=== PATIENT | female | born 1970 | race Caucasian/White ===

== ENCOUNTER → 2017-01-30 | Outpatient (CLI) | payer OTHER ==
--- NOTE | 2017-01-30 15:34 | DIAGNOSTIC IMAGING REPORT ---
PROCEDURE: US COMPLETE PELVIC W/TRANSVAG INDICATION: PELVIC PAIN TECHNIQUE: Transabdominal and endovaginal duran scale and color Doppler sonographic images of the female pelvis were obtained. COMPARISON: Pelvic ultrasound dated 04/26/2016 FINDINGS: TRANSABDOMINAL SCANS: The uterus is of normal size 9.1 x 6.2 x 4.5 cm Kidneys are normal. TRANSVAGINAL SCANS: The uterus is retroverted Myometrium contains a posterior medial fibroid that measures 3.4 cm in diameter. The endometrium measures 11.1 mm. Right ovary is normal measuring 3.0 x 2.2 x 2.2 cm and contains a simple 2 cm cyst. The left ovary is surgically absent IMPRESSION: 1. Abnormally thick endometrium for a postmenopausal woman. 2. 3 cm uterine fibroid. 3. 2 cm simple right ovarian cyst.
== END ==
LOC: US SRH 14:00
DX: D25.9 Leiomyoma of uterus, unspecified (principal); N83.201 Unspecified ovarian cyst, right side